=== PATIENT | female | born 1990 | race Asian ===

== ENCOUNTER 2017-11-14 14:23 | Outpatient (CLI) | payer OTHER | END 2017-11-14 18:40 | disposition home or self-care (01) | LOC: OBT 14:23 → L-D 14:23 → OBT 18:40 | DX: O26.892 Other specified pregnancy related conditions, second trimester (principal); R10.2 Pelvic and perineal pain; Z3A.27 27 weeks gestation of pregnancy | CPT/HCPCS: 76817 ==

== ENCOUNTER 2018-02-05 09:26 | Inpatient (IN) | payer MEDICAID, OTHER ==
[2018-02-05] MEDS ORDERED: LACTATED RINGER'S 1,000 ML IV ×2 (10:20→20:40)
[2018-02-05] MEDS ORDERED: MISOPROSTOL 200 MCG TAB PR (10:30)
[2018-02-05] MEDS ORDERED: OXYTOCIN 30 UNITS/LR 500 ML IV (10:30)
[2018-02-05] MEDS ORDERED: ACETAMINOPHEN/CODEINE #3 TAB PO (10:30)
[2018-02-05] MEDS ORDERED: IBUPROFEN 600 MG TAB PO (10:30)
[2018-02-05] MEDS ORDERED: LIDOCAINE 1% (MPF) 30 ML INJ INJ (10:30)
[2018-02-05] MEDS ORDERED: METHYLERGONOVINE 0.2 MG INJ IM (10:30)
[2018-02-05] MEDS ORDERED: CARBOPROST 250 MCG INJ IM (10:30)
[2018-02-05] MEDS: LACTATED RINGER'S 1,000 ML IV* ×2 (11:14→18:07)
[2018-02-05 11:41] LABS: ADD MAN DIFF? NO
[2018-02-05 11:43] LABS: BASOPHIL # 0.1 10^3/ul (0.0-0.1); BASOPHILS % 0.7 % (0.0-2.0); EOSINOPHILS # 0.1 10^3/ul (0.0-0.5); EOSINOPHILS % 1.6 % (0.0-7.0); HEMOGLOBIN 12.1 g/dl (12.0-16.0); MEAN CORPUSCULAR HEMOGLOBIN 29.4 pg (29.0-33.0); MEAN CORPUSCULAR HGB CONC 33.6 g/dl (32.0-37.0); MEAN CORPUSCULAR VOLUME 87.6 fl (82.0-101.0); MEAN PLATELET VOLUME 10.4 fl (7.4-10.4); MONOCYTE # 0.6 10^3/ul (0.3-0.9); MONOCYTES % 7.5 % (0.0-11.0); NEUTROPHIL # 5.3 10^3/ul (1.6-7.5); NEUTROPHILS % 65.3 % (39.0-77.0); PLATELET COUNT 204 10^3/UL (140-415); RED BLOOD COUNT 4.11 10^6/ul (4.20-5.40); RED CELL DISTRIBUTION WIDTH 13.2 % (11.5-14.5)
[2018-02-05 11:43] LABS: WHITE BLOOD COUNT 8.1 10^3/ul (4.8-10.8)
[2018-02-05 12:21] LABS: INR 0.88; PT RATIO 0.9
[2018-02-05 12:22] LABS: PARTIAL THROMBOPLASTIN TIME 27.8 Sec (25.0-35.0)
[2018-02-05 12:47] LABS: HEPATITIS B SURFACE ANTIGEN NEGATIVE (NEGATIVE)
[2018-02-05 19:43] LABS: RAPID PLASMA REAGIN NONREACTIVE (NR)
[2018-02-05] MEDS: OXYTOCIN 30 UNITS/LR 500 ML IV (21:12)
[2018-02-05] MEDS: BUTORPHANOL 2 MG INJ IV (23:55)
[2018-02-06] MEDS ORDERED: morphine 10 MG INJ (01:52)
[2018-02-06] MEDS: OXYTOCIN 30 UNITS/LR 500 ML IV ×2 (02:09→03:05)
[2018-02-06] MEDS: morphine 10 MG INJ IV (02:14)
[2018-02-06] MEDS: LACTATED RINGER'S 1,000 ML IV* (02:30)
[2018-02-06] MEDS ORDERED: ONDANSETRON 4 MG INJ (04:10)
[2018-02-06] MEDS: ONDANSETRON 4 MG INJ IV (04:54)
[2018-02-06] MEDS ORDERED: LACTATED RINGER'S 1,000 ML IV* (05:27)
[2018-02-06] MEDS ORDERED: METHYLERGONOVINE 0.2 MG INJ IM (05:30)
[2018-02-06] MEDS ORDERED: OXYTOCIN 30 UNITS/LR 500 ML IV (05:30)
[2018-02-06] MEDS ORDERED: HYDROCODONE/APAP (5/325) TAB PO (05:30)
[2018-02-06] MEDS ORDERED: DIBUCAINE 1% 30 GM OINT PR (05:30)
[2018-02-06] MEDS ORDERED: MISOPROSTOL 200 MCG TAB PR (05:30)
[2018-02-06] MEDS ORDERED: CARBOPROST 250 MCG INJ IM (05:30)
[2018-02-06] MEDS: LANOLIN 7 GM TUBE TOP (05:57)
[2018-02-06] MEDS: BENZOCAINE 20% 56 ML SPRAY TOP (05:57)
[2018-02-06] MEDS: WITCH HAZEL/GLYCERIN PAD PR (05:57)
[2018-02-06] MEDS: IBUPROFEN 600 MG TAB PO ×4 (05:58→17:53)
[2018-02-06] MEDS: SENNA/DOCUSATE NA (8.6MG/50MG) TAB PO ×2 (09:18→22:24)
[2018-02-07] MEDS: IBUPROFEN 600 MG TAB PO ×5 (00:12→23:46)
[2018-02-07 08:39] LABS: ADD MAN DIFF? NO
[2018-02-07 08:48] LABS: BASOPHIL # 0.1 10^3/ul (0.0-0.1); BASOPHILS % 0.6 % (0.0-2.0); EOSINOPHILS # 0.2 10^3/ul (0.0-0.5); HEMATOCRIT 33.7 % (37.0-47.0); HEMOGLOBIN 11.5 g/dl (12.0-16.0); LYMPHOCYTES # 2.4 10^3/ul (0.8-2.9); LYMPHOCYTES % 14.9 % (15.0-51.0); MEAN CORPUSCULAR HEMOGLOBIN 29.9 pg (29.0-33.0); MEAN CORPUSCULAR HGB CONC 34.1 g/dl (32.0-37.0); MEAN CORPUSCULAR VOLUME 87.8 fl (82.0-101.0); MEAN PLATELET VOLUME 10.3 fl (7.4-10.4); MONOCYTE # 0.7 10^3/ul (0.3-0.9); MONOCYTES % 4.5 % (0.0-11.0); NEUTROPHIL # 12.6 10^3/ul (1.6-7.5); NEUTROPHILS % 78.6 % (39.0-77.0); PLATELET COUNT 181 10^3/UL (140-415); RED BLOOD COUNT 3.84 10^6/ul (4.20-5.40); RED CELL DISTRIBUTION WIDTH 13.2 % (11.5-14.5)
[2018-02-07] MEDS: ACETAMINOPHEN 325 MG TAB PO ×2 (08:58→16:43)
[2018-02-07] MEDS: SENNA/DOCUSATE NA (8.6MG/50MG) TAB PO ×2 (08:58→21:30)
[2018-02-08] MEDS: IBUPROFEN 600 MG TAB PO ×3 (05:29→17:49)
[2018-02-08 06:56] LABS: ADD MAN DIFF? NO
[2018-02-08 07:02] LABS: WHITE BLOOD COUNT 19.4 10^3/ul (4.8-10.8)
[2018-02-08 07:02] LABS: BASOPHIL # 0.1 10^3/ul (0.0-0.1); BASOPHILS % 0.5 % (0.0-2.0); EOSINOPHILS # 0.4 10^3/ul (0.0-0.5); EOSINOPHILS % 1.9 % (0.0-7.0); HEMATOCRIT 34.5 % (37.0-47.0); HEMOGLOBIN 11.2 g/dl (12.0-16.0); LYMPHOCYTES # 2.4 10^3/ul (0.8-2.9); LYMPHOCYTES % 12.3 % (15.0-51.0); MEAN CORPUSCULAR HEMOGLOBIN 28.6 pg (29.0-33.0); MEAN CORPUSCULAR HGB CONC 32.5 g/dl (32.0-37.0); MEAN CORPUSCULAR VOLUME 88.2 fl (82.0-101.0); MEAN PLATELET VOLUME 10.5 fl (7.4-10.4); MONOCYTE # 0.9 10^3/ul (0.3-0.9); MONOCYTES % 4.5 % (0.0-11.0); NEUTROPHIL # 15.6 10^3/ul (1.6-7.5); NEUTROPHILS % 80.3 % (39.0-77.0); PLATELET COUNT 187 10^3/UL (140-415); RED BLOOD COUNT 3.91 10^6/ul (4.20-5.40); RED CELL DISTRIBUTION WIDTH 13.2 % (11.5-14.5)
[2018-02-08] MEDS: SENNA/DOCUSATE NA (8.6MG/50MG) TAB PO ×2 (09:19→21:14)
[2018-02-08] MEDS: DIPHTH/TET/ACEL PERTUSS (ADULT) 0.5 ML VIAL IM* (09:52)
[2018-02-08] MEDS: ACETAMINOPHEN 325 MG TAB PO (13:43)
[2018-02-08 16:52] LABS: ADD UMIC YES; UR ASCORBIC ACID NEGATIVE (NEGATIVE); UR BILIRUBIN (Dip) NEGATIVE (NEGATIVE); UR BLOOD (Dip) 3+ mg/dL (NEGATIVE); UR CLARITY CLEAR (CLEAR); UR COLOR STRAW (YELLOW); UR GLUCOSE (Dip) NEGATIVE (NEGATIVE); UR KETONES (Dip) NEGATIVE (NEGATIVE); UR LEUKOCYTE ESTERASE (Dip) TRACE Leu/ul (NEGATIVE); UR MUCUS FEW /HPF (NONE SEEN); UR NITRITE (Dip) NEGATIVE (NEGATIVE); UR RBC 22 /HPF (0-5); UR SPECIFIC GRAVITY (Dip) 1.004 (1.003-1.030); UR TOTAL PROTEIN (Dip) NEGATIVE (NEGATIVE); UR UROBILINOGEN (Dip) NEGATIVE (NEGATIVE); UR WBC 11 /HPF (0-5)
[2018-02-08] MEDS: CEPHALEXIN 500 MG CAP PO (19:30)
[2018-02-09] MEDS: IBUPROFEN 600 MG TAB PO ×3 (00:17→12:48)
[2018-02-09] MEDS: CEPHALEXIN 500 MG CAP PO ×3 (00:17→12:48)
[2018-02-09] MEDS: SENNA/DOCUSATE NA (8.6MG/50MG) TAB PO (08:46)
[2018-02-09 09:42] LABS: ADD MAN DIFF? NO
[2018-02-09 09:46] LABS: WHITE BLOOD COUNT 14.3 10^3/ul (4.8-10.8)
[2018-02-09 09:46] LABS: BASOPHIL # 0.1 10^3/ul (0.0-0.1); BASOPHILS % 0.6 % (0.0-2.0); EOSINOPHILS # 0.3 10^3/ul (0.0-0.5); EOSINOPHILS % 2.4 % (0.0-7.0); HEMATOCRIT 37.4 % (37.0-47.0); HEMOGLOBIN 12.2 g/dl (12.0-16.0); LYMPHOCYTES % 13.8 % (15.0-51.0); MEAN CORPUSCULAR HEMOGLOBIN 29.4 pg (29.0-33.0); MEAN CORPUSCULAR HGB CONC 32.6 g/dl (32.0-37.0); MEAN CORPUSCULAR VOLUME 90.1 fl (82.0-101.0); MEAN PLATELET VOLUME 10.2 fl (7.4-10.4); MONOCYTE # 0.7 10^3/ul (0.3-0.9); MONOCYTES % 4.8 % (0.0-11.0); NEUTROPHIL # 11.1 10^3/ul (1.6-7.5); NEUTROPHILS % 77.6 % (39.0-77.0); PLATELET COUNT 188 10^3/UL (140-415); RED BLOOD COUNT 4.15 10^6/ul (4.20-5.40); RED CELL DISTRIBUTION WIDTH 13.2 % (11.5-14.5)
== END 2018-02-09 15:35 | disposition home or self-care (01) | DRG 774 ==
LOC: OBT 09:26 → PP1 02-06 04:42 → L-D 09:26 → OBT 10:15 → L-D 10:15
PROVIDERS: Obstetrics & Gynecology
PROC: 10E0XZZ Delivery of Products of Conception, External Approach (ICD-10-PCS; principal; 2018-02-06)
PROC: 0KQM0ZZ Repair Perineum Muscle, Open Approach (ICD-10-PCS; 2018-02-06)
DX: O75.3 Other infection during labor (principal); N39.0 Urinary tract infection, site not specified; O70.1 Second degree perineal laceration during delivery; Z37.0 Single live birth; Z3A.39 39 weeks gestation of pregnancy
CPT/HCPCS: 81001; 85025; 85610; 85730; 86592; 86850; 86900; 86901; 87086; 87340